=== PATIENT | male | born 1960 | race Caucasian/White ===

== ENCOUNTER → 2017-11-30 | Outpatient (CLI) | payer OTHER ==
[~2017-11-30] VITALS: Ht 172.7 cm; Wt 91.0 kg
[~2017-11-30] MED LIST: CHLORHEXIDINE GLUCONATE 2 % 1 PACK (2 CLOTHS) TOPICAL PRN; EPINEPHrine HCL PF/SF (1:1000) 1 MG/ML AMP I-OCULAR ONE; EPINEPHrine-Lidocaine/BSS (PF/SF) 4-120 mg/16 mL OPTH SYR LEFT EYE ONE; HYALURONIDASE/LIDOCAINE/BUPIVACAINE 5 ML SYR LEFT EYE ONE; LACTATED RINGER'S 1000 ML IV PRN; METOPROLOL TARTRATE 25 MG TAB PO PRN; POVIDONE IODINE 5% (ANTISEPSIS KIT) 4 APPLICATIONS EACH NARE PRN; PROPOFOL 200 MG/20 ML AMP ONE; SODIUM CHLORID 0.9% 500 ML IV PRN; TOBRAMYCIN/DEXAMETHASONE OPTH OINT 3.5 GM TUBE ONE; VISCOAT OPHT IRRIG SOLN 0.75 ML SYRINGE ONE
[2017-11-30 08:35] VITALS: PULSE 70
[2017-11-30] MEDS: TROPICAMIDE 1% OPHT SOLN 15 ML BTL LEFT EYE SCH ×3 (08:43→08:53)
[2017-11-30] MEDS: CYCLOPENTOLATE HCL 1% OPHT SOLN 2 ML BTL LEFT EYE SCH ×3 (08:43→08:53)
[2017-11-30] MEDS: TETRACAINE 0.5% OPTH SOLN 4 ML BTL LEFT EYE SCH ×3 (08:43→08:53)
[2017-11-30] MEDS: PHENYLEPHRINE HCL 10% OPTH SOLN 5 ML BTL LEFT EYE SCH ×3 (08:43→08:53)
[2017-11-30 09:03] VITALS: PULSE 79
[2017-11-30 10:15] VITALS: TEMP 97.9
--- NOTE | 2017-11-30 10:27 | PD.OP ---
Operative Report Date of Surgery: Nov 30, 2017 Preoperative Diagnosis: (1) Posterior subcapsular age-related cataract of left eye Postoperative Diagnosis: (1) Pseudophakia of left eye Procedure: phacoemulsification and intraocular lens implant left eye Anesthesia: retrobulbar block, MAC Surgeon: Pat Aviles Medical Advisor(s): none Operation and Findings: Patient was consented for surgery, given a retrobulbar block by anesthesia, and taken back to the operating room. He was prepped and draped in the usual sterile fashion for ophthalmic surgery. A wire lid speculum was placed in the left eye. A paracentesis incision was created at the 5 o'clock position on the limbus. Vision blue dye and viscoelastic was injected into the anterior chamber. The main incision was created at the 2 o'clock position on the limbus with a 2.4 mm keratome. A continuous curvilinear capsulorrhexis was made on the anterior lens capsule. Hydrodissection was used to separate the lens from the capsule. Phacoemulsification was used to remove the lens nucleus material. Irrigation and aspiration was used to remove the remaining cortical material. The lens implant ([id number] SN [id number]) was placed in the capsular bag. Viscoelastic was removed with irrigation and aspiration. The incisions were irrigated and found to be watertight. Tobradex ointment, a patch, and shield were placed on the left eye. The patient was sent to PACU in stable condition. Pat Aviles MD Nov 30, 2017 10:27
[2017-11-30 10:32] VITALS: BP 116/84; PULSE 63; RESP 16; O2SAT 97
--- NOTE | 2017-11-30 18:22 | EKG ---
Date Performed: 11/30/2017 Time Performed: 08:33:39 PTAGE: 57 years EKG: Sinus rhythm INCOMPLETE RIGHT BUNDLE BRANCH BLOCK BORDERLINE ECG NO PREVIOUS TRACING DOCTOR: Joya Rodriguez Interpretating Date/Time 11/30/2017 18:20:18
== END ==
LOC: PHSDC 07:26
PROVIDERS: ATTEND Ophthalmology
DX: H25.9 Unspecified age-related cataract (principal); I45.10 Unspecified right bundle-branch block
CPT/HCPCS: 00142; 66984; 93005; J0171; J7040; V2632